=== PATIENT | male | born 1970 | race Caucasian/White ===

== ENCOUNTER 2020-10-30 04:34 | Emergency (ER) | payer OTHER ==
[~2020-10-30] VITALS: Ht 185.4 cm; Wt 129.0 kg
[~2020-10-30 04:34] MED LIST: AMOXICILLIN500 MG PO; COLCHICINE PO; FLEXERIL5 M1 PO; MEDDOSEPAK PO; MELOXICAM15 MG PO; MUCINEX1200 MG PO; NORCO1 TA1 PO; PERCOCET1 TA4 PO
[2020-10-30] MEDS ORDERED: LIPITOR40 M1 PO (04:50)
[2020-10-30] MEDS ORDERED: LOSARTAN POTASS25 MG PO (04:50)
[2020-10-30] MEDS ORDERED: ASPIRIN 81 LOW81 MG PO (04:51)
[2020-10-30] MEDS ORDERED: OMEPRAZOLE20 MG PO (04:52)
[2020-10-30 05:38] LABS: HEMATOCRIT 43.3 % (39.0-50.0); HEMOGLOBIN 13.9 g/dl (14.0-18.0); IMMATURE GRANULOCYTES 0.4 % (0.0-5.0); MEAN CELL VOLUME 92.1 fL CALC (80.0-100.0); MEAN CORPUSCULAR HGB 29.6 pG CALC (26.0-32.0); MEAN CORPUSCULAR HGB CONC 32.1 g/dL CAL (32.0-36.0); NEUT# 6.11 thou/uL (1.82-7.42); RED BLOOD COUNT 4.7 mill/uL (4.70-6.10); RED CELL DISTRI WIDTH 12.7 % (11.5-15.5)
[2020-10-30 05:46] LABS: ALBUMIN 4.1 g/dL (3.2-5.0); ALKALINE PHOSPHATASE 81 u/l (38-126); AMYLASE 53 u/l (30-110); ANION GAP 10 (6-22 (CALC)); BILIRUBIN, TOTAL 0.8 mg/dL (0.0-1.4); BUN 19 mg/dL (9-20); BUN/CREATININE RATIO 20 (12-20 (CALC)); CARBON DIOXIDE 27 mmol/l (22-30); CHLORIDE 106 mmol/l (95-108); CREATININE 0.9 mg/dL (0.7-1.3); GFR > 60 ML/MIN (>=60 (CALC)); GFR FOR AFR.AMER. > 60 ML/MIN (>=60 (CALC)); LIPASE 69 u/l (23-300); POTASSIUM 4.2 mmol/l (3.5-5.1); SGOT/AST 25 u/l (17-59); SODIUM 139 mmol/l (137-146); TOTAL PROTEIN 7.3 g/dL (6.3-8.2)
[2020-10-30 06:01] LABS: URINE BILIRUBIN - DIPSTICK NEGATIVE (NEGATIVE); URINE BLOOD DIPSTICK MODERATE (NEGATIVE); URINE COLOR YELLOW; URINE GLUCOSE - DIPSTICK NEGATIVE (NEGATIVE); URINE KETONE NEGATIVE (NEGATIVE); URINE LEUK ESTERASE NEGATIVE (NEGATIVE); URINE NITRITE - DIPSTICK NEGATIVE (Negative); URINE PROTEIN - DIPSTICK NEGATIVE (NEG-TRACE); URINE SPECIFIC GRAVITY 1.025; URINE UROBILINOGEN - DIPSTICK 0.2 E.U./dL (0.2)
[2020-10-30 06:13] LABS: URINE RBC 25-50 RBC/hpf (0-5); URINE SQUAMOUS EPITHELIAL CELL FEW EPI/hpf (0-FEW)
[2020-10-30] MEDS ORDERED: TAMSULOSIN0.4 MG PO (06:33)
[2020-10-30] MEDS ORDERED: LORTAB5 PO (06:33)
[2020-10-30] MEDS ORDERED: TORADOL PO (06:33)
[2020-10-30 06:40] VITALS: BP 174/87
== END 2020-10-30 06:40 | disposition home or self-care (01) | DRG 694 ==
LOC: ED 04:34
PROVIDERS: Family Medicine
DX: N13.2 Hydronephrosis with renal and ureteral calculous obstruction (principal); I10 Essential (primary) hypertension; E78.00 Pure hypercholesterolemia, unspecified; K21.9 Gastro-esophageal reflux disease without esophagitis; Z87.442 Personal history of urinary calculi

== ENCOUNTER 2020-12-26 18:03 | Observation (INO) | payer OTHER ==
[~2020-12-26] VITALS: Ht 185.4 cm; Wt 127.0 kg
[~2020-12-26 18:03] MED LIST changes: +ASPIRIN 81 LOW81 MG PO; +LIPITOR40 M1 PO; +LORTAB5 PO; +LOSARTAN POTASS25 MG PO; +OMEPRAZOLE20 MG PO; +TAMSULOSIN0.4 MG PO; +TORADOL PO
[2020-12-26 18:19] LABS: HEMATOCRIT 43.2 % (39.0-50.0); HEMOGLOBIN 13.8 g/dl (14.0-18.0); IMMATURE GRANULOCYTES 0.4 % (0.0-5.0); MEAN CELL VOLUME 91.9 fL CALC (80.0-100.0); MEAN CORPUSCULAR HGB 29.4 pG CALC (26.0-32.0); MEAN CORPUSCULAR HGB CONC 31.9 g/dL CAL (32.0-36.0); NEUT# 6.65 thou/uL (1.82-7.42); RED BLOOD COUNT 4.7 mill/uL (4.70-6.10); RED CELL DISTRI WIDTH 12.6 % (11.5-15.5)
[2020-12-26 18:38] LABS: ALBUMIN 4.4 g/dL (3.2-5.0); ALKALINE PHOSPHATASE 77 u/l (38-126); ANION GAP 8 (6-22 (CALC)); BILIRUBIN, TOTAL 1.6 mg/dL (0.0-1.4); BUN 13 mg/dL (9-20); BUN/CREATININE RATIO 14 (12-20 (CALC)); CARBON DIOXIDE 33 mmol/l (22-30); CHLORIDE 101 mmol/l (95-108); CREATININE 0.9 mg/dL (0.7-1.3); GFR > 60 ML/MIN (>=60 (CALC)); GFR FOR AFR.AMER. > 60 ML/MIN (>=60 (CALC)); POTASSIUM 3.8 mmol/l (3.5-5.1); SGOT/AST 32 u/l (17-59); SODIUM 138 mmol/l (137-146); TOTAL PROTEIN 7.8 g/dL (6.3-8.2)
[2020-12-26 19:41] LABS: URINE BILIRUBIN - DIPSTICK NEGATIVE (NEGATIVE); URINE BLOOD DIPSTICK NEGATIVE (NEGATIVE); URINE COLOR YELLOW; URINE GLUCOSE - DIPSTICK NEGATIVE (NEGATIVE); URINE KETONE NEGATIVE (NEGATIVE); URINE LEUK ESTERASE NEGATIVE (NEGATIVE); URINE NITRITE - DIPSTICK NEGATIVE (Negative); URINE PROTEIN - DIPSTICK NEGATIVE (NEG-TRACE)
[2020-12-26] MEDS ORDERED: PAROXETINE20 MG PO (20:33)
[2020-12-27 00:10] VITALS: BP 153/90
[2020-12-27 03:40] VITALS: BP 140/81
[2020-12-27 06:57] LABS: CHOLESTEROL HDL RATIO 2.8 (<4.4 (CALC))
[2020-12-27 07:15] VITALS: BP 156/88
[2020-12-27 10:40] VITALS: BP 159/96
[2020-12-27] MEDS ORDERED: NEURONTIN100 MG PO (11:57)
[2021-02-11] MEDS ORDERED: XANAX0.25 MG PO (10:25)
== END 2020-12-27 12:35 | disposition home or self-care (01) | DRG 313 ==
LOC: ED 18:03 → ED-I 20:10 → ED 20:20 → ED-I 20:21 → MS2 23:53
PROVIDERS: Family Medicine; ADMIT Internal Medicine; ATTEND Internal Medicine
DX: R07.9 Chest pain, unspecified (principal); I10 Essential (primary) hypertension; G60.9 Hereditary and idiopathic neuropathy, unspecified; N20.0 Calculus of kidney; E78.5 Hyperlipidemia, unspecified; F41.9 Anxiety disorder, unspecified; K21.9 Gastro-esophageal reflux disease without esophagitis; Z87.442 Personal history of urinary calculi; Z20.822 Contact with and (suspected) exposure to COVID-19
CPT/HCPCS: G0378

== ENCOUNTER 2024-05-10 08:20 | Emergency (ER) | payer OTHER ==
[2024-05-10] VITALS (13 sets, daily range): BP systolic 134–179; BP diastolic 79–155
[~2024-05-10] VITALS: Ht 185.4 cm; Wt 131.5 kg
[~2024-05-10 08:20] MED LIST changes: +ALPRAZOLAM ER1 MG PO; +ANTIDEPRESSENT; +NEURONTIN100 MG PO; +PAROXETINE20 MG PO; +XANAX0.25 MG PO
[2024-05-10] MEDS ORDERED: KETOROLAC TROMETHAMINE 30 MG/ML SDV IV ONE (08:40)
[2024-05-10] MEDS ORDERED: ONDANSETRON HCl 4 MG/2 ML SDV IV ONE (08:45)
[2024-05-10] MEDS ORDERED: SODIUM CHLORIDE 0.9% 1,000 ML IV ONE (08:45)
[2024-05-10 09:02] LABS: POTASSIUM 4.3 mmol/l (3.5-5.1)
[2024-05-10 09:05] LABS: BASO% 0.3 % (0-3); EOS% 1.3 % (0-8); HEMATOCRIT 44.1 % (39.0-50.0); IMMATURE GRANULOCYTES 0.4 % (0.0-5.0); LYMPH% 24.3 % (15-41); MEAN CELL VOLUME 92.5 fL CALC (80.0-100.0); MEAN CORPUSCULAR HGB 29.4 pG CALC (26.0-32.0); MEAN CORPUSCULAR HGB CONC 31.7 g/dL CAL (32.0-36.0); MONO% 6.3 % (2-13); NEUT# 7.01 thou/uL (1.82-7.42); NEUT% 67.4 % (42-76); RED BLOOD COUNT 4.77 mill/uL (4.70-6.10); RED CELL DISTRI WIDTH 12.9 % (11.5-15.5)
[2024-05-10 10:42] LABS: URINE BILIRUBIN - DIPSTICK Negative (NEGATIVE); URINE BLOOD DIPSTICK Large (NEGATIVE); URINE COLOR Yellow; URINE GLUCOSE - DIPSTICK Negative (NEGATIVE); URINE KETONE Negative (NEGATIVE); URINE LEUK ESTERASE Negative (NEGATIVE); URINE NITRITE - DIPSTICK Negative (Negative); URINE PROTEIN - DIPSTICK Trace mg/dL (NEG-TRACE); URINE SPECIFIC GRAVITY >=1.030; URINE UROBILINOGEN - DIPSTICK 0.2 E.U./dL (0.2)
[2024-05-10] MEDS ORDERED: TYLENOL # 31 TA1 PO (10:51)
[2024-05-10] MEDS ORDERED: TAMSULOSIN0.4 MG PO (10:51)
== END 2024-05-10 11:22 | disposition home or self-care (01) | DRG 694 ==
LOC: ED 08:20
PROVIDERS: Family Medicine
DX: N13.2 Hydronephrosis with renal and ureteral calculous obstruction (principal); I10 Essential (primary) hypertension; Z87.442 Personal history of urinary calculi